=== PATIENT | male | born 1940 | race Caucasian/White ===

== ENCOUNTER 2021-05-07 17:37 | Inpatient (IN) | payer MEDICARE, OTHER ==
[~2021-05-07] VITALS: Ht 188 cm; Wt 106.8 kg
[~2021-05-07 17:37] MED LIST: etomidate 2mg/ml inj. ONE; rocuronium 10mg/ml inj IV ONE; sod chloride 0.9% 10ml flush syringe IV ONE
[2021-05-07] MEDS ORDERED: LISI10TA27 PO (17:51)
[2021-05-07] MEDS ORDERED: magnesium Cl slow-release 64mg tablet PO PRN (18:25)
[2021-05-07] MEDS ORDERED: magnesium 4gm in 100ml NS 100 ML IV PRN (18:25)
[2021-05-07] MEDS ORDERED: potassium Cl 20 mEq SR tablet PO PRN ×2 (18:25)
[2021-05-07] MEDS ORDERED: ondansetron/PF 4mg/2ml inj IV PRN (18:25)
[2021-05-07] MEDS: normal saline 1000ml 1,000 ML IV SCH (18:25)
[2021-05-07] MEDS ORDERED: potassium Cl 40MEQ/1/2NS 520ml 520 ML IV PRN ×2 (18:25)
[2021-05-07] MEDS ORDERED: magnesium 2GM in 50ml NS 50 ML IV PRN (18:25)
[2021-05-07] MEDS ORDERED: lisinopril 10 MG tablet PO SCH (18:30)
[2021-05-07] MEDS: enoxaparin 40mg/0.4ml syringe SUBCUT SCH (19:27)
[2021-05-07] MEDS: docusate sod 100mg capsule PO SCH (19:27)
[2021-05-07] MEDS: K and/or MAG REPLACEMENT MC SCH (20:00)
[2021-05-07] MEDS ORDERED: REMDESIVIR 200 MG in NS 100ml IVPB Loading dose IV ONE (21:00)
[2021-05-07] MEDS: DEXAMETHASONE 6 MG TABLET PO SCH (21:42)
--- NOTE | 2021-05-07 23:57 | NUR ---
RTWILL, AT BEDSIDE PLACING PT ON SALTAIR HIGH FLOW. HR 116, NSR, IRREGULAR.
[2021-05-08 02:57] LABS: BASOPHILS % (AUTO) 0.1 % (0-1); EOSINOPHILS % (AUTO) 0 % (0-6); HEMATOCRIT 47.2 % (42.0-52.0); HEMOGLOBIN 16.1 g/dl (14.0-17.9); LYMPHOCYTES # (AUTO) 0.5 X10'3 (1.1-4.8); LYMPHOCYTES % (AUTO) 8.4 % (21-51); MEAN CORPUSCULAR HGB CONC 34.1 g/dL (33.0-36.5); MEAN CORPUSCULAR VOLUME 96.8 FL (78-98); MEAN PLATELET VOLUME 7.1 FL (7.4-10.4); MONOCYTES # (AUTO) 0.4 X10'3 (0-0.9); MONOCYTES % (AUTO) 7.6 % (2-12); NEUTROPHILS # (AUTO) 4.6 X10'3 (1.8-7.7); NEUTROPHILS % (AUTO) 83.9 % (42-75); PLATELET COUNT 232 X10'3 (140-440); RED BLOOD COUNT 4.88 X10'6 (4.70-6.10); WHITE BLOOD COUNT 5.5 X10'3 (4.5-11.0)
[2021-05-08 03:03] LABS: ALBUMIN 2.5 G/DL (3.4-5.0); ANION GAP 11 (8-16); BLOOD UREA NITROGEN 17 MG/DL (7-18); BUN/CREATININE RATIO 14.7 (5.4-32.0); CALCIUM 8.4 MG/DL (8.5-10.1); CHLORIDE 101 MMOL/L (99-107); CREATININE 1.16 MG/DL (0.60-1.10); GLUCOSE 174 MG/DL (70-104); MAGNESIUM 2.4 MG/DL (1.5-2.4); POTASSIUM 4.2 MMOL/L (3.5-5.1); SODIUM 135 MMOL/L (135-145); TOTAL CARBON DIOXIDE 22.7 MMOL/L (24-32); eGFR 61 ML/MIN
--- NOTE | 2021-05-08 07:30 | NUR ---
recd report from yajaira dailey
[2021-05-08] MEDS: K and/or MAG REPLACEMENT MC SCH ×2 (08:00→20:00)
[2021-05-08] MEDS: docusate sod 100mg capsule PO SCH ×2 (08:35→20:00)
[2021-05-08] MEDS: DEXAMETHASONE 6 MG TABLET PO SCH (08:36)
[2021-05-08] MEDS: enoxaparin 40mg/0.4ml syringe SUBCUT SCH (08:37)
[2021-05-08 10:42] VITALS: BP 129/71
[2021-05-08 14:52] VITALS: BP 120/66
[2021-05-08 18:00] VITALS: BP 128/78
--- NOTE | 2021-05-08 18:34 | NUR ---
Problems reprioritized. Patient report given, questions answered & plan of care reviewed with FRANKY DELANEY.
--- NOTE | 2021-05-08 19:00 | NUR ---
Patient in room ORTHO 4011. I have received report from Mecca DELANEY and had the opportunity to ask questions and assume patient care.
[2021-05-08] MEDS: REMDESIVIR INJ 100 MG in normal saline 100ml IV soln 80 ML IV SCH (21:12)
[2021-05-08 22:00] VITALS: BP 126/68
--- NOTE | 2021-05-08 23:57 | NUR ---
PULSE OX WAS SAYING 86-89% ON 10 LITERS HIGH FLOW SO I INCREASED HIM TO 15 LITERS HIGH FLOW AND STILL AT 87-89% INFORMED PT'S NURSE AND PT WAS ALSO ABLE TO USE THE IS AND BRING IT UP TO ABOUT 2000.
--- NOTE | 2021-05-09 06:24 | NUR ---
Problems reprioritized. Patient report given, questions answered & plan of care reviewed with Mecca DELANEY.
--- NOTE | 2021-05-09 06:39 | NUR ---
Patient in room ORTHO 4011. I have received report from travis dailey and had the opportunity to ask questions and assume patient care.
[2021-05-09 06:55] VITALS: BP 132/70
[2021-05-09 07:47] LABS: BASOPHILS % (AUTO) 0.1 % (0-1); EOSINOPHILS % (AUTO) 0 % (0-6); HEMATOCRIT 50.8 % (42.0-52.0); HEMOGLOBIN 17.1 g/dl (14.0-17.9); LYMPHOCYTES # (AUTO) 0.9 X10'3 (1.1-4.8); LYMPHOCYTES % (AUTO) 9.8 % (21-51); MEAN CORPUSCULAR HEMOGLOBIN 33.7 PG (27.0-31.0); MEAN CORPUSCULAR HGB CONC 33.7 g/dL (33.0-36.5); MEAN PLATELET VOLUME 6.9 FL (7.4-10.4); MONOCYTES # (AUTO) 1.3 X10'3 (0-0.9); MONOCYTES % (AUTO) 14.3 % (2-12); NEUTROPHILS # (AUTO) 6.9 X10'3 (1.8-7.7); NEUTROPHILS % (AUTO) 75.8 % (42-75); PLATELET COUNT 252 X10'3 (140-440); RED BLOOD COUNT 5.08 X10'6 (4.70-6.10); RED CELL DISTRIBUTION WIDTH 13.2 % (11.5-14.5); WHITE BLOOD COUNT 9.1 X10'3 (4.5-11.0)
[2021-05-09 07:59] LABS: D-DIMER 0.63 MG/L FEU (0-0.50)
[2021-05-09 08:00] LABS: ALBUMIN 2.6 G/DL (3.4-5.0); ANION GAP 10 (8-16); BLOOD UREA NITROGEN 20 MG/DL (7-18); BUN/CREATININE RATIO 22.7 (5.4-32.0); C-REACTIVE PROTEIN 0.84 MG/DL (0.0-0.5); CHLORIDE 102 MMOL/L (99-107); CREATININE 0.88 MG/DL (0.60-1.10); GLUCOSE 110 MG/DL (70-104); MAGNESIUM 2.7 MG/DL (1.5-2.4); POTASSIUM 4.2 MMOL/L (3.5-5.1); SODIUM 134 MMOL/L (135-145); TOTAL CARBON DIOXIDE 22.1 MMOL/L (24-32); eGFR 84 ML/MIN
[2021-05-09] MEDS: K and/or MAG REPLACEMENT MC SCH ×2 (08:00→20:00)
[2021-05-09] MEDS: docusate sod 100mg capsule PO SCH ×2 (08:00→20:00)
[2021-05-09] MEDS: lisinopril 5mg tablet PO SCH (08:36)
[2021-05-09] MEDS: DEXAMETHASONE 6 MG TABLET PO SCH (08:36)
[2021-05-09] MEDS: enoxaparin 40mg/0.4ml syringe SUBCUT SCH (08:37)
[2021-05-09 10:00] VITALS: BP 126/70
[2021-05-09 14:00] VITALS: BP 116/70
[2021-05-09 18:00] VITALS: BP 131/72
[2021-05-09] MEDS: normal saline 1000ml 1,000 ML IV SCH (18:25)
--- NOTE | 2021-05-09 18:33 | NUR ---
Problems reprioritized. Patient report given, questions answered & plan of care reviewed with ANDRIA DELANEY.
--- NOTE | 2021-05-09 18:33 | NUR ---
Patient in room ORTHO 4011. I have received report from Mecca DELANEY and had the opportunity to ask questions and assume patient care.
[2021-05-09] MEDS: REMDESIVIR INJ 100 MG in normal saline 100ml IV soln 80 ML IV SCH (20:33)
[2021-05-09 22:00] VITALS: BP 131/79
[2021-05-10 02:00] VITALS: BP 117/64
[2021-05-10 06:00] VITALS: BP 129/73
--- NOTE | 2021-05-10 06:39 | NUR ---
Problems reprioritized. Patient report given, questions answered & plan of care reviewed with Roya DELANEY.
[2021-05-10] MEDS: K and/or MAG REPLACEMENT MC SCH ×2 (08:00→19:32)
[2021-05-10 08:20] LABS: BASOPHILS % (AUTO) 0.1 % (0-1); EOSINOPHILS % (AUTO) 0 % (0-6); HEMATOCRIT 47.8 % (42.0-52.0); HEMOGLOBIN 16.7 g/dl (14.0-17.9); LYMPHOCYTES # (AUTO) 0.6 X10'3 (1.1-4.8); LYMPHOCYTES % (AUTO) 7.3 % (21-51); MEAN CORPUSCULAR HEMOGLOBIN 33.7 PG (27.0-31.0); MEAN CORPUSCULAR HGB CONC 34.9 g/dL (33.0-36.5); MEAN CORPUSCULAR VOLUME 96.5 FL (78-98); MEAN PLATELET VOLUME 6.7 FL (7.4-10.4); MONOCYTES # (AUTO) 1.1 X10'3 (0-0.9); MONOCYTES % (AUTO) 12.3 % (2-12); NEUTROPHILS # (AUTO) 7.2 X10'3 (1.8-7.7); NEUTROPHILS % (AUTO) 80.3 % (42-75); PLATELET COUNT 301 X10'3 (140-440); RED BLOOD COUNT 4.96 X10'6 (4.70-6.10); RED CELL DISTRIBUTION WIDTH 13.3 % (11.5-14.5); WHITE BLOOD COUNT 8.9 X10'3 (4.5-11.0)
[2021-05-10] MEDS: docusate sod 100mg capsule PO SCH ×2 (08:20→19:32)
[2021-05-10] MEDS: dexamethasone 4mg tablet PO SCH ×2 (08:20→08:23)
[2021-05-10] MEDS: lisinopril 5mg tablet PO SCH (08:20)
[2021-05-10] MEDS: enoxaparin 40mg/0.4ml syringe SUBCUT SCH (08:21)
[2021-05-10 08:30] LABS: D-DIMER 1.91 MG/L FEU (0-0.50)
[2021-05-10 08:39] LABS: ALBUMIN 2.6 G/DL (3.4-5.0); ANION GAP 10 (8-16); BLOOD UREA NITROGEN 23 MG/DL (7-18); BUN/CREATININE RATIO 24.7 (5.4-32.0); C-REACTIVE PROTEIN 0.54 MG/DL (0.0-0.5); CHLORIDE 102 MMOL/L (99-107); CREATININE 0.93 MG/DL (0.60-1.10); GLUCOSE 96 MG/DL (70-104); MAGNESIUM 2.6 MG/DL (1.5-2.4); POTASSIUM 4.7 MMOL/L (3.5-5.1); SODIUM 137 MMOL/L (135-145); TOTAL CARBON DIOXIDE 25.4 MMOL/L (24-32); eGFR 78 ML/MIN
[2021-05-10 10:00] VITALS: BP 132/74
[2021-05-10 14:00] VITALS: BP 132/73
[2021-05-10 18:00] VITALS: BP 100/44
--- NOTE | 2021-05-10 18:47 | NUR ---
Patient in room ORTHO 4011. I have received report from Hannah DELANEY and had the opportunity to ask questions and assume patient care.
[2021-05-10] MEDS: REMDESIVIR INJ 100 MG in normal saline 100ml IV soln 80 ML IV SCH (19:32)
[2021-05-10 22:00] VITALS: BP 119/58
[2021-05-11 02:00] VITALS: BP 106/52
[2021-05-11 06:00] VITALS: BP 137/72
--- NOTE | 2021-05-11 06:31 | NUR ---
Problems reprioritized. Patient report given, questions answered & plan of care reviewed with Toyin DELANEY.
[2021-05-11] MEDS: lisinopril 5mg tablet PO SCH (07:39)
[2021-05-11] MEDS: dexamethasone 4mg tablet PO SCH (07:39)
[2021-05-11] MEDS: enoxaparin 40mg/0.4ml syringe SUBCUT SCH (07:40)
[2021-05-11] MEDS: docusate sod 100mg capsule PO SCH ×2 (07:40→20:00)
[2021-05-11 07:45] LABS: BASOPHILS % (AUTO) 0 % (0-1); EOSINOPHILS % (AUTO) 0 % (0-6); HEMATOCRIT 47.6 % (42.0-52.0); HEMOGLOBIN 16.6 g/dl (14.0-17.9); LYMPHOCYTES # (AUTO) 0.7 X10'3 (1.1-4.8); LYMPHOCYTES % (AUTO) 5.7 % (21-51); MEAN CORPUSCULAR HEMOGLOBIN 33.1 PG (27.0-31.0); MEAN CORPUSCULAR HGB CONC 34.9 g/dL (33.0-36.5); MEAN CORPUSCULAR VOLUME 95.1 FL (78-98); MEAN PLATELET VOLUME 6.7 FL (7.4-10.4); MONOCYTES # (AUTO) 0.7 X10'3 (0-0.9); MONOCYTES % (AUTO) 6.1 % (2-12); NEUTROPHILS # (AUTO) 10.5 X10'3 (1.8-7.7); NEUTROPHILS % (AUTO) 88.2 % (42-75); PLATELET COUNT 276 X10'3 (140-440); RED BLOOD COUNT 5.01 X10'6 (4.70-6.10); RED CELL DISTRIBUTION WIDTH 12.8 % (11.5-14.5); WHITE BLOOD COUNT 11.9 X10'3 (4.5-11.0)
[2021-05-11] MEDS: K and/or MAG REPLACEMENT MC SCH ×2 (08:00→18:54)
[2021-05-11 08:05] LABS: D-DIMER 7.25 MG/L FEU (0-0.50)
[2021-05-11 08:06] LABS: ALBUMIN 2.5 G/DL (3.4-5.0); ANION GAP 13 (8-16); BLOOD UREA NITROGEN 23 MG/DL (7-18); BUN/CREATININE RATIO 26.1 (5.4-32.0); C-REACTIVE PROTEIN 1.65 MG/DL (0.0-0.5); CALCIUM 8.7 MG/DL (8.5-10.1); CHLORIDE 100 MMOL/L (99-107); CREATININE 0.88 MG/DL (0.60-1.10); GLUCOSE 91 MG/DL (70-104); MAGNESIUM 2.3 MG/DL (1.5-2.4); SODIUM 134 MMOL/L (135-145); TOTAL CARBON DIOXIDE 20.9 MMOL/L (24-32); eGFR 84 ML/MIN
[2021-05-11 10:00] VITALS: BP 117/79
[2021-05-11] MEDS ORDERED: iohexol 350MG/ML 100ml bottle IV ONE (11:26)
[2021-05-11 12:18] LABS: LACTATE DEHYDROGENASE 457 U/L (85-227)
--- NOTE | 2021-05-11 12:48 | NUR ---
virtual radiology called regarding critical results. I paged Dr. Grant their phone number to call them
[2021-05-11] MEDS ORDERED: heparin 10,000 units/1 ML INJ IV ONE (13:00)
--- NOTE | 2021-05-11 13:00 | NUR ---
Page Sent PAGER ID: [phone] MESSAGE: CANDY [phone] RE: AMITA DURAND [id number] ARE YOU GOING TO COME UP AND TALK TO THE PT TO LET HIM KNOW THIS NEW DIAGNOSIS? I'D LIKE TO WAIT UNTIL AFTER THAT TO LET THE DAUGHTER KNOW. THANK YOU!
[2021-05-11 14:00] VITALS: BP 127/74
[2021-05-11] MEDS: heparin 25,000 UNIT/250ml bag 250 ML IV SCH (14:40)
[2021-05-11] MEDS: normal saline 1000ml 1,000 ML IV SCH (18:25)
[2021-05-11] MEDS: REMDESIVIR INJ 100 MG in normal saline 100ml IV soln 80 ML IV SCH (20:46)
[2021-05-11 21:00] VITALS: BP 165/82
[2021-05-11] MEDS: heparin 10,000 units/1 ML INJ IV PRN (22:07)
--- NOTE | 2021-05-11 22:27 | NUR ---
Heparin bolus was given 4,500 units. Went to change the rate due to a PTT of 44 following protocol to 2100 units and wasn't able to scan the bag. Charge nurse Gabriela Onofre was present and dual signed.
[2021-05-12 02:00] VITALS: BP 159/87
[2021-05-12] MEDS: heparin 25,000 UNIT/250ml bag 250 ML IV SCH ×3 (04:02→16:47)
[2021-05-12 06:00] VITALS: BP 163/79
--- NOTE | 2021-05-12 06:30 | NUR ---
Patient in room ORTHO 4011B. I have received report from ELAINA BABIN and had the opportunity to ask questions and assume patient care.
[2021-05-12] MEDS: docusate sod 100mg capsule PO SCH ×2 (08:00→20:00)
[2021-05-12] MEDS: K and/or MAG REPLACEMENT MC SCH ×2 (08:00→19:55)
[2021-05-12] MEDS: dexamethasone 4mg tablet PO SCH (08:04)
[2021-05-12] MEDS: lisinopril 5mg tablet PO SCH (08:04)
[2021-05-12 08:46] LABS: BASOPHILS % (AUTO) 0 % (0-1); EOSINOPHILS % (AUTO) 0.1 % (0-6); HEMATOCRIT 49.8 % (42.0-52.0); HEMOGLOBIN 17.6 g/dl (14.0-17.9); LYMPHOCYTES # (AUTO) 0.5 X10'3 (1.1-4.8); LYMPHOCYTES % (AUTO) 3.2 % (21-51); MEAN CORPUSCULAR HEMOGLOBIN 33.9 PG (27.0-31.0); MEAN CORPUSCULAR HGB CONC 35.3 g/dL (33.0-36.5); MEAN CORPUSCULAR VOLUME 95.8 FL (78-98); MONOCYTES # (AUTO) 0.5 X10'3 (0-0.9); MONOCYTES % (AUTO) 3.7 % (2-12); NEUTROPHILS # (AUTO) 13.4 X10'3 (1.8-7.7); PLATELET COUNT 293 X10'3 (140-440); RED CELL DISTRIBUTION WIDTH 13.1 % (11.5-14.5); WHITE BLOOD COUNT 14.4 X10'3 (4.5-11.0)
[2021-05-12 08:55] LABS: ALBUMIN 2.4 G/DL (3.4-5.0); ANION GAP 14 (8-16); BLOOD UREA NITROGEN 21 MG/DL (7-18); BUN/CREATININE RATIO 24.7 (5.4-32.0); C-REACTIVE PROTEIN 6.59 MG/DL (0.0-0.5); CALCIUM 8.6 MG/DL (8.5-10.1); CHLORIDE 97 MMOL/L (99-107); CREATININE 0.85 MG/DL (0.60-1.10); GLUCOSE 99 MG/DL (70-104); MAGNESIUM 2.5 MG/DL (1.5-2.4); SODIUM 129 MMOL/L (135-145); TOTAL CARBON DIOXIDE 18.1 MMOL/L (24-32); eGFR 87 ML/MIN
[2021-05-12 10:00] VITALS: BP 167/71
[2021-05-12 10:02] LABS: D-DIMER 5.63 MG/L FEU (0-0.50)
[2021-05-12] MEDS: heparin 10,000 units/1 ML INJ IV PRN (10:02)
--- NOTE | 2021-05-12 12:24 | NUR ---
Initial: Pt admit DX COVID-19, PNA, HTN, and acute respiratory failure per EMR. Pt initially PO ~100% avg heart healthy diet first 3 days w/ sudden decline to 0%/refusing yesterday. Noted pt w/ increased SOB and DX acute pulmonary embolism per MD note. Overall 75% avg meals partially meeting needs w/ PO pending for today's meals. Given pt large stature and current DX would benefit from Ensure High Protein TIDWM for additional protein/kcals; MD notified. Serum Na 129 this AM on heart healthy diet; RD d/w RN regarding liberalization to regular diet if MD agreeable given age/serum Na. LBM 05/10 w/ routine colace available and pt last accepted 05/10 per EMR. Will continue to monitor for PO trends and additional protein/kcal needs. Rec: 1. liberalize to regular diet from current heart healthy given low serum Na and age 2. Ensure High Protein TIDWM; pending MD verification in EMR. IF PO remains poor consider Ensure Enlive 3. routine bowel care 4. weekly wts Addendum: 05/12/21 at [address]ín [address] Amended: Links added.
[2021-05-12] MEDS ORDERED: lactose-reduced food (Ensure High Protein) 237ml bottle PO SCH (13:00)
[2021-05-12 13:50] LABS: ABG BASE EXCESS -1.7 mmol/L (-2.0-2.0); ABG HCO3 18.1 mmol/L (22.0-26.0); ABG OXYGEN SATURATION 87.8 % (94-97); ABG PCO2 (T) 24.4 mmHg (35.0-48.0); ABG PO2 (T) 59.6 mmHg (75.0-100.0); ALLEN'S TEST POSITIVE; FCOHb 0.3 % (0.0-3.9); FLOW 60 L/min; FMetHb 0.3 % (0.0-1.5); FO2Hb 87.3 % (94-97); PATIENT TEMPERATURE 39.4; TOTAL HEMOGLOBIN 17.4 G/dl (14.0-18.0)
[2021-05-12 14:00] VITALS: BP 131/72
[2021-05-12] MEDS: methylPREDNISolone sod succ 125mg/2ml vial IV SCH (16:47)
--- NOTE | 2021-05-12 18:39 | NUR ---
Problems reprioritized. Patient report given, questions answered & plan of care reviewed with ELAINA BABIN.
[2021-05-12] MEDS: normal saline 1000ml 1,000 ML IV SCH (22:04)
[2021-05-13 02:00] VITALS: BP 125/67
[2021-05-13] MEDS: methylPREDNISolone sod succ 125mg/2ml vial IV SCH ×3 (03:17→15:48)
--- NOTE | 2021-05-13 06:10 | NUR ---
Pt report given to Kaila DELANEY
--- NOTE | 2021-05-13 06:39 | NUR ---
Patient in room ORTHO 4011. I have received report from Rosalba DELANEY and had the opportunity to ask questions and assume patient care.
[2021-05-13 06:41] VITALS: BP 125/73
[2021-05-13] MEDS: docusate sod 100mg capsule PO SCH ×2 (07:50→19:40)
[2021-05-13] MEDS: lisinopril 5mg tablet PO SCH (07:50)
[2021-05-13] MEDS: K and/or MAG REPLACEMENT MC SCH ×2 (08:00→19:25)
[2021-05-13 09:13] LABS: C-REACTIVE PROTEIN 7.23 MG/DL (0.0-0.5); MAGNESIUM 2.6 MG/DL (1.5-2.4)
--- NOTE | 2021-05-13 09:17 | NUR ---
Upon assessment this morning patients IV line had infiltrated where his heparin was infusing. 0600 ptt was 31. Because I have no idea how long the heparin was not infusing properly it was discussed with the gis coordinator to re draw the ptt at 1200 to see what he is rather than increasing the rate per protocol.
[2021-05-13] MEDS: normal saline 1000ml 1,000 ML IV SCH (11:26)
[2021-05-13 13:09] VITALS: BP 120/70
--- NOTE | 2021-05-13 13:32 | NUR ---
Heparin GTT therapeutic at this time
--- NOTE | 2021-05-13 14:41 | NUR ---
Nutrition consult: RN inquiring about Ensure ONS for pt d/t poor PO intake w/ BiPAP. Per documentation, pt eating 100% of meals today. Communicated w/ RN that RD previously recommended Ensure High Protein TID though still unverified in EMR. Will continue to monitor. Addendum: 05/13/21 at [address] Amended: Links added.
[2021-05-13 16:39] VITALS: BP 125/80
[2021-05-13] MEDS: lactose-reduced food (Ensure Enlive) - 237ml bottle PO SCH (18:00)
[2021-05-13 18:30] VITALS: BP 154/84
--- NOTE | 2021-05-13 18:38 | NUR ---
Problems reprioritized. Patient report given, questions answered & plan of care reviewed with Davie DELANEY.
--- NOTE | 2021-05-13 18:50 | NUR ---
Problems reprioritized. Patient report given, questions answered & plan of care reviewed with Rosalba DELANEY.
--- NOTE | 2021-05-13 18:53 | NUR ---
Patient in room ORTHO 4011. I have received report from Pinky DELANEY and had the opportunity to ask questions and assume patient care.
[2021-05-13 22:10] VITALS: BP 130/65
[2021-05-14] MEDS: heparin 25,000 UNIT/250ml bag 250 ML IV SCH ×3 (00:30→19:00)
[2021-05-14] MEDS: methylPREDNISolone sod succ 125mg/2ml vial IV SCH ×3 (00:31→16:02)
[2021-05-14 02:00] VITALS: BP 106/55
[2021-05-14] MEDS: normal saline 1000ml 1,000 ML IV SCH ×2 (02:15→13:43)
[2021-05-14 04:08] LABS: C-REACTIVE PROTEIN 3.4 MG/DL (0.0-0.5); D-DIMER 2.28 MG/L FEU (0-0.50); MAGNESIUM 2.7 MG/DL (1.5-2.4)
[2021-05-14] MEDS: heparin 10,000 units/1 ML INJ IV PRN (05:06)
--- NOTE | 2021-05-14 06:22 | NUR ---
Patient in room ORTHO 4011. I have received report from Davie DELANEY and had the opportunity to ask questions and assume patient care.
[2021-05-14 06:35] VITALS: BP 101/48
[2021-05-14] MEDS: docusate sod 100mg capsule PO SCH ×2 (08:00→20:00)
[2021-05-14] MEDS: K and/or MAG REPLACEMENT MC SCH ×2 (08:00→20:00)
[2021-05-14] MEDS: lactose-reduced food (Ensure Enlive) - 237ml bottle PO SCH ×3 (08:00→18:41)
[2021-05-14] MEDS: lisinopril 5mg tablet PO SCH (08:16)
--- NOTE | 2021-05-14 12:07 | NUR ---
PAGER ID: [phone] MESSAGE: [id number] Raza, PTT is >139. Heparin drip stopped for 120 minutes per protocol. deepa [phone]
--- NOTE | 2021-05-14 12:09 | NUR ---
PTT per lab >139. Heparin stopped x120 minutes per protocol and re-draw ordered for 1400.
[2021-05-14 12:28] VITALS: BP 126/77
[2021-05-14 17:00] VITALS: BP 127/63
[2021-05-14 18:00] VITALS: BP 148/76
--- NOTE | 2021-05-14 18:27 | NUR ---
Problems reprioritized. Patient report given, questions answered & plan of care reviewed with Deangelo DELANEY.
--- NOTE | 2021-05-14 21:02 | NUR ---
PTT therapeutic no change necessary
[2021-05-14 22:00] VITALS: BP 142/75
[2021-05-15] MEDS: methylPREDNISolone sod succ 125mg/2ml vial IV SCH ×3 (00:55→16:29)
[2021-05-15] MEDS: normal saline 1000ml 1,000 ML IV SCH ×2 (03:03→04:20)
--- NOTE | 2021-05-15 03:18 | NUR ---
gave update to daughter Dixie about cpap and current PTT status.
[2021-05-15 03:22] VITALS: BP 143/70
[2021-05-15] MEDS: heparin 25,000 UNIT/250ml bag 250 ML IV SCH ×2 (04:17→19:05)
--- NOTE | 2021-05-15 05:59 | NUR ---
reported to days. noted pt on cpap at pressure 10 and 75% FIo2. Tolerating well. next PTT at 0730 with AM labs
[2021-05-15 06:23] VITALS: BP 151/74
--- NOTE | 2021-05-15 06:33 | NUR ---
Patient in room ORTHO 4011. I have received report from Deangelo DELANEY and had the opportunity to ask questions and assume patient care.
[2021-05-15] MEDS: lisinopril 5mg tablet PO SCH (07:54)
[2021-05-15] MEDS: docusate sod 100mg capsule PO SCH ×2 (08:00→19:59)
[2021-05-15] MEDS: K and/or MAG REPLACEMENT MC SCH ×2 (08:00→20:00)
--- NOTE | 2021-05-15 08:09 | NUR ---
PAGER ID: [phone] MESSAGE: [id number], Raza patient has expiratory wheezes this morning. Can I get an albuterol inhaler please? thank you deepa [phone]
[2021-05-15] MEDS ORDERED: ALBUTEROL INHALER 1 PUFF/90 MCG INHALER IH PRN (08:10)
[2021-05-15] MEDS: lactose-reduced food (Ensure Enlive) - 237ml bottle PO SCH ×3 (08:41→18:30)
[2021-05-15 10:15] LABS: BASOPHILS % (AUTO) 0.2 % (0-1); EOSINOPHILS % (AUTO) 0.1 % (0-6); HEMATOCRIT 47.4 % (42.0-52.0); HEMOGLOBIN 16.5 g/dl (14.0-17.9); LYMPHOCYTES # (AUTO) 0.2 X10'3 (1.1-4.8); LYMPHOCYTES % (AUTO) 1.3 % (21-51); MEAN CORPUSCULAR HEMOGLOBIN 33.7 PG (27.0-31.0); MEAN CORPUSCULAR HGB CONC 34.9 g/dL (33.0-36.5); MEAN CORPUSCULAR VOLUME 96.5 FL (78-98); MEAN PLATELET VOLUME 6.8 FL (7.4-10.4); MONOCYTES # (AUTO) 0.5 X10'3 (0-0.9); MONOCYTES % (AUTO) 3.4 % (2-12); NEUTROPHILS # (AUTO) 15.2 X10'3 (1.8-7.7); PLATELET COUNT 331 X10'3 (140-440); RED BLOOD COUNT 4.92 X10'6 (4.70-6.10); RED CELL DISTRIBUTION WIDTH 13.2 % (11.5-14.5)
[2021-05-15 10:27] LABS: ALANINE AMINOTRANSFERASE 38 U/L (12-78); ALBUMIN 1.9 G/DL (3.4-5.0); ALBUMIN/GLOBULIN RATIO 0.5 (1.1-1.5); ALKALINE PHOSPHATASE 129 IU/L (46-116); ANION GAP 12 (8-16); ASPARTATE AMINO TRANSFERASE 32 U/L (10-37); BILIRUBIN,TOTAL 0.8 MG/DL (0.1-1.0); BLOOD UREA NITROGEN 23 MG/DL (7-18); BUN/CREATININE RATIO 27.7 (5.4-32.0); C-REACTIVE PROTEIN 2.32 MG/DL (0.0-0.5); CALCIUM 7.9 MG/DL (8.5-10.1); CHLORIDE 101 MMOL/L (99-107); CREATININE 0.83 MG/DL (0.60-1.10); GLUCOSE 149 MG/DL (70-104); POTASSIUM 4.7 MMOL/L (3.5-5.1); SODIUM 134 MMOL/L (135-145); TOTAL CARBON DIOXIDE 20.7 MMOL/L (24-32); TOTAL PROTEIN 5.9 G/DL (6.4-8.2); eGFR 89 ML/MIN
[2021-05-15 10:40] VITALS: BP 138/74
[2021-05-15 10:53] LABS: D-DIMER 2.54 MG/L FEU (0-0.50)
--- NOTE | 2021-05-15 13:25 | NUR ---
F/u 05/15: Pt PO mostly ~100% regular diet meals w/ exception of 05/11-05/12 otherwise meeting needs. Noted Ensure Enlive TIDWM ordered in EMR after RD recommended ensure high protein TID; pt PO 100% ONS as well meeting needs. LBM 05/14. Serum Na 129 advanced to regular diet from prior heart healthy and receiving NS. No nutrition intervention at this time. Will continue to monitor. Rec: 1. continue regular diet 2. Ensure Enlive TIDWM per MD; consider Ensure High Protein TIDWM given adequate PO hx 3. routine bowel care 4. weekly wts Addendum: 05/15/21 at [address] Amended: Links added.
[2021-05-15] MEDS: acetaminophen 325mg tablet PO PRN (16:44)
--- NOTE | 2021-05-15 17:02 | NUR ---
PAGER ID: [phone] MESSAGE: [id number] patient is on bipap 100% fi02 oxygen saturations are 85-90% he is tachycardic and has a fever. Can i please get a blood gas he is having a hard time tolerating the bipap. Pinky [phone]
--- NOTE | 2021-05-15 17:04 | NUR ---
PAGER ID: [phone] MESSAGE: [id number] Raza, also patient is on a heparin drip for pulmonary embolism and just had a nosebleed. Current PTT is pending. Do you want me to keep heparin running or hold it? deepa [phone]
--- NOTE | 2021-05-15 17:25 | NUR ---
Spoke with hospitalist regarding patients condition. He was not tolerating cpap so he was switched back to bipap settings. Patient still is having a hard time with the bipap, tidal volumes are high as are respiratory rates, patient has a temperature of 100.9 axillary, tylenol given. Patient also developed a small nose bleed and is on heparin drip for pulmonary embolism was told to "follow the protocol" and that the hospitalist had spoken to the logistics and planning manager days ago about this patient and she does not know what to do. ABG ordered.
[2021-05-15 17:40] LABS: ABG BASE EXCESS -1.4 mmol/L (-2.0-2.0); ABG HCO3 20.2 mmol/L (22.0-26.0); ABG OXYGEN SATURATION 90.7 % (94-97); ABG PCO2 (T) 29.5 mmHg (35.0-48.0); ABG PO2 (T) 63.7 mmHg (75.0-100.0); ALLEN'S TEST POSITIVE; FCOHb 0.3 % (0.0-3.9); FMetHb 0.4 % (0.0-1.5); FO2Hb 90.1 % (94-97); PATIENT TEMPERATURE 38.8; RESPIRATORY RATE 16 b/min; TOTAL HEMOGLOBIN 16.6 G/dl (14.0-18.0)
--- NOTE | 2021-05-15 18:30 | NUR ---
Patient in room ORTHO 4011B. I have received report from ELAINA Vance and had the opportunity to ask questions and assume patient care.
--- NOTE | 2021-05-15 18:49 | NUR ---
Problems reprioritized. Patient report given, questions answered & plan of care reviewed with Esmer DELANEY.
[2021-05-15 19:55] VITALS: BP 125/71
[2021-05-15 22:00] VITALS: BP 152/79
--- NOTE | 2021-05-15 23:07 | NUR ---
Patient's cardiac PTT results therapeutic at 67 seconds. No rate changes needed
[2021-05-16] VITALS (7 sets, daily range): BP systolic 129–171; BP diastolic 37–92
[2021-05-16] MEDS: methylPREDNISolone sod succ 125mg/2ml vial IV SCH ×3 (00:37→16:13)
--- NOTE | 2021-05-16 02:17 | NUR ---
pt desat to 84% on bipap. RT changed to cpap still 100% fiO2. pt did well with cpap - then desat with any movement. pt not anxious or breathing hard. seems to be comfortable at this time. cont pulse ox in place and audible. RT aware. pt staying at 89%
[2021-05-16 05:25] LABS: C-REACTIVE PROTEIN 2.31 MG/DL (0.0-0.5)
[2021-05-16 05:28] LABS: D-DIMER 4.11 MG/L FEU (0-0.50)
[2021-05-16] MEDS: normal saline 1000ml 1,000 ML IV SCH ×3 (05:43→21:34)
[2021-05-16] MEDS: heparin 25,000 UNIT/250ml bag 250 ML IV SCH ×4 (07:08→21:36)
[2021-05-16 07:27] LABS: ALANINE AMINOTRANSFERASE 40 U/L (12-78); ALBUMIN 1.9 G/DL (3.4-5.0); ALBUMIN/GLOBULIN RATIO 0.5 (1.1-1.5); ALKALINE PHOSPHATASE 145 IU/L (46-116); ANION GAP 8 (8-16); ASPARTATE AMINO TRANSFERASE 34 U/L (10-37); BILIRUBIN,TOTAL 0.9 MG/DL (0.1-1.0); BLOOD UREA NITROGEN 23 MG/DL (7-18); BUN/CREATININE RATIO 27.7 (5.4-32.0); CALCIUM 8.3 MG/DL (8.5-10.1); CHLORIDE 100 MMOL/L (99-107); CREATININE 0.83 MG/DL (0.60-1.10); GLUCOSE 124 MG/DL (70-104); POTASSIUM 4.6 MMOL/L (3.5-5.1); SODIUM 129 MMOL/L (135-145); TOTAL CARBON DIOXIDE 20.8 MMOL/L (24-32); TOTAL PROTEIN 5.7 G/DL (6.4-8.2); eGFR 89 ML/MIN
[2021-05-16] MEDS: K and/or MAG REPLACEMENT MC SCH ×2 (08:00→20:00)
[2021-05-16] MEDS: lactose-reduced food (Ensure Enlive) - 237ml bottle PO SCH ×3 (08:40→18:00)
[2021-05-16] MEDS: docusate sod 100mg capsule PO SCH ×3 (08:42→20:00)
[2021-05-16] MEDS: lisinopril 5mg tablet PO SCH (08:49)
--- NOTE | 2021-05-16 10:12 | NUR ---
spoke to Dr Pineda re pt oxygenation status. He agrees with Dr Diaz that the pt needs to go to ICU. He recommends that DR Diaz transfers the pt as soon as possible. I spoke with DR Diaz and relayed the message, she states she will call nursing banana ripening room supervisor and make arrangement
[2021-05-16] MEDS ORDERED: budesonide 0.5mg/2ml UD nebule IH STA (12:09)
--- NOTE | 2021-05-16 12:44 | NUR ---
Dr Tobin came to assess patient and feels that he can stay on the floor. I expressed concern over the RR 27 and the fact that the O2 sat is rarely above 88. He is ordering a blood gas and budesonide nebs. PTT was due at 1030. I was told by veterinarian laboratory animal care this am that she would come back and draw the timed PTT and that I did not have to draw the lab. The lab was late and I was told to draw it myself. At 1130 I shut off the hep gtt and I tried multiple times to draw lab to no avail. Then the IV looked infilrated/bruised so I had to leave the infusion off until I could secure another IV. The infusion was restarted at 1230. Nursing load out supervisor is aware of this situation. I spoke to the lab again about my concern over the fact that this lab value is over 2 hours late, and they said that a veterinarian laboratory animal care would be here to draw the labs shortly.
[2021-05-16 12:52] LABS: ABG BASE EXCESS -1.4 mmol/L (-2.0-2.0); ABG HCO3 20.8 mmol/L (22.0-26.0); ABG OXYGEN SATURATION 92.4 % (94-97); ABG PCO2 (T) 29.3 mmHg (35.0-48.0); ABG PO2 (T) 61.9 mmHg (75.0-100.0); ALLEN'S TEST POSITIVE; FCOHb 0.3 % (0.0-3.9); FMetHb 0.2 % (0.0-1.5); FO2Hb 91.9 % (94-97); TOTAL HEMOGLOBIN 16.8 G/dl (14.0-18.0)
[2021-05-16 14:41] LABS: BASOPHILS # (AUTO) 0.1 X10'3 (0-0.2); BASOPHILS % (AUTO) 0.3 % (0-1); EOSINOPHILS % (AUTO) 0 % (0-6); HEMATOCRIT 48.2 % (42.0-52.0); HEMOGLOBIN 16.7 g/dl (14.0-17.9); LYMPHOCYTES # (AUTO) 0.3 X10'3 (1.1-4.8); LYMPHOCYTES % (AUTO) 1.6 % (21-51); MEAN CORPUSCULAR HEMOGLOBIN 33.5 PG (27.0-31.0); MEAN CORPUSCULAR HGB CONC 34.5 g/dL (33.0-36.5); MEAN PLATELET VOLUME 7.1 FL (7.4-10.4); MONOCYTES # (AUTO) 0.3 X10'3 (0-0.9); NEUTROPHILS # (AUTO) 15.6 X10'3 (1.8-7.7); NEUTROPHILS % (AUTO) 96.1 % (42-75); PLATELET COUNT 301 X10'3 (140-440); RED BLOOD COUNT 4.97 X10'6 (4.70-6.10); RED CELL DISTRIBUTION WIDTH 12.9 % (11.5-14.5); WHITE BLOOD COUNT 16.2 X10'3 (4.5-11.0)
--- NOTE | 2021-05-16 15:09 | NUR ---
PAGER ID: [phone] MESSAGE: Carolann [phone]- re Mr Kiran Raza- Dr Tobin has consulted, does not believe he needs to be transferred to ICU emergently. Pt temp 100.1, he ordered labs lactic, etc, but wanted you to know what was going on.
[2021-05-16] MEDS: acetaminophen 325mg tablet PO PRN (16:15)
--- NOTE | 2021-05-16 19:11 | NUR ---
Patient in room ORTHO 4011. I have received report from CLARA DELANEY and had the opportunity to ask questions and assume patient care. Addendum: 05/16/21 at 1911 by Kirstie Dunham RN Amended: Links added.
[2021-05-16 20:57] LABS: PARTIAL THROMBOPLASTIN TIME 57 SECONDS (22-32)
[2021-05-17] MEDS: methylPREDNISolone sod succ 125mg/2ml vial IV SCH ×3 (00:35→18:30)
--- NOTE | 2021-05-17 01:11 | NUR ---
RESTING WITH BIPAP ON WITHOUT S&S OF DISTRESS AT THIS TIME.
[2021-05-17 02:20] VITALS: BP 157/100
--- NOTE | 2021-05-17 02:25 | NUR ---
labs drawn from left ac iv.
--- NOTE | 2021-05-17 03:35 | NUR ---
was told tubes not able to be run so redraw needed for hep ptt. drawn from left ac iv after flushing and heparin off during this time. then sent down with desk representative to be reran. Addendum: 05/17/21 at 0454 by Kirstie Dunham RN time of notification wrong notified 0420 and drawn 0425 for labs.
--- NOTE | 2021-05-17 05:32 | NUR ---
pt sat up to void in urinal became very sob and sats down to 86% after 15 minutes of laying down and rest sats back up to 90% on 100% fio2.
--- NOTE | 2021-05-17 05:36 | NUR ---
lab called stated they were unable to run the blood drawn it hemolyzed.
[2021-05-17 06:00] VITALS: BP 190/105
--- NOTE | 2021-05-17 06:39 | NUR ---
Problems reprioritized. Patient report given, questions answered & plan of care reviewed with CLARY DELANEY. Addendum: 05/17/21 at 0640 by Kirstie Dunham RN Amended: Links added.
[2021-05-17] MEDS: budesonide 0.5mg/2ml UD nebule IH SCH (07:43)
[2021-05-17] MEDS: lactose-reduced food (Ensure Enlive) - 237ml bottle PO SCH ×3 (08:00→18:45)
[2021-05-17] MEDS: K and/or MAG REPLACEMENT MC SCH ×2 (08:00→20:00)
[2021-05-17] MEDS: docusate sod 100mg capsule PO SCH ×2 (08:00→19:30)
[2021-05-17 08:38] LABS: BASOPHILS % (AUTO) 0.1 % (0-1); EOSINOPHILS % (AUTO) 0 % (0-6); HEMOGLOBIN 16.1 g/dl (14.0-17.9); LYMPHOCYTES # (AUTO) 0.2 X10'3 (1.1-4.8); LYMPHOCYTES % (AUTO) 1.2 % (21-51); MEAN CORPUSCULAR HEMOGLOBIN 33.2 PG (27.0-31.0); MEAN CORPUSCULAR HGB CONC 35.1 g/dL (33.0-36.5); MEAN CORPUSCULAR VOLUME 94.7 FL (78-98); MEAN PLATELET VOLUME 6.9 FL (7.4-10.4); MONOCYTES # (AUTO) 0.7 X10'3 (0-0.9); MONOCYTES % (AUTO) 3.7 % (2-12); NEUTROPHILS # (AUTO) 16.6 X10'3 (1.8-7.7); PLATELET COUNT 277 X10'3 (140-440); RED BLOOD COUNT 4.86 X10'6 (4.70-6.10); RED CELL DISTRIBUTION WIDTH 12.8 % (11.5-14.5); WHITE BLOOD COUNT 17.5 X10'3 (4.5-11.0)
[2021-05-17 08:51] LABS: D-DIMER 3.66 MG/L FEU (0-0.50)
[2021-05-17 09:30] LABS: ALBUMIN 1.9 G/DL (3.4-5.0); ANION GAP 8 (8-16); BLOOD UREA NITROGEN 23 MG/DL (7-18); BUN/CREATININE RATIO 32.4 (5.4-32.0); C-REACTIVE PROTEIN 2.37 MG/DL (0.0-0.5); CALCIUM 8.4 MG/DL (8.5-10.1); CHLORIDE 100 MMOL/L (99-107); CREATININE 0.71 MG/DL (0.60-1.10); GLUCOSE 113 MG/DL (70-104); MAGNESIUM 2.5 MG/DL (1.5-2.4); POTASSIUM 4.5 MMOL/L (3.5-5.1); SODIUM 131 MMOL/L (135-145); TOTAL CARBON DIOXIDE 23.1 MMOL/L (24-32); eGFR > 90 ML/MIN
[2021-05-17] MEDS: heparin 25,000 UNIT/250ml bag 250 ML IV SCH ×3 (09:56→15:24)
[2021-05-17 10:00] VITALS: BP 143/94
[2021-05-17] MEDS: lisinopril 5mg tablet PO SCH (12:39)
[2021-05-17 14:00] VITALS: BP 142/96
[2021-05-17 14:57] LABS: PARTIAL THROMBOPLASTIN TIME 50 SECONDS (22-32)
--- NOTE | 2021-05-17 15:02 | NUR ---
call to MD schmitt pt increasing tachy rate: PAGER ID: [phone] MESSAGE: Carolann [phone] oskar Person- MILAD- HR is steadily climbing today, now in the 130's per tele. takes once daily lisinopril but no other BP meds
[2021-05-17] MEDS: acetaminophen 325mg tablet PO PRN (16:32)
[2021-05-17 16:33] LABS: ABG BASE EXCESS -2.1 mmol/L (-2.0-2.0); ABG HCO3 19.9 mmol/L (22.0-26.0); ABG PCO2 (T) 29.7 mmHg (35.0-48.0); ABG PO2 (T) 55.8 mmHg (75.0-100.0); ALLEN'S TEST POSITIVE; FCOHb 0.3 % (0.0-3.9); FMetHb 0.3 % (0.0-1.5); FO2Hb 87.5 % (94-97); PATIENT TEMPERATURE 37.9; RESPIRATORY RATE 16 b/min; TOTAL HEMOGLOBIN 17.9 G/dl (14.0-18.0)
--- NOTE | 2021-05-17 16:48 | NUR ---
Called by nurse to evaluate patient. Nurse states she is concerned with his working of breathing and that he is tiring out. Patient on BiPAP on 100% FiO2. Some abdominal accessory muscle usage, but does not appear to be struggling. RR in 30's. Noted heart rate 130's. CXR done showing increased opacity. ABG remains unchanged from yesterday. Recommend an anxiolytic to allow patient to rest and to prone patient as much as possible to assist with lung recruitment and oxygenation.
--- NOTE | 2021-05-17 16:49 | NUR ---
Spoke to Joe who, again, agrees pt should be transferred to higher level of care (this was the opinion yesterday as well) spoke to Lennie OLIVER. SHe states that blood gas looks worse P02 is 52.4 and dropping. Pt RR is sustained 32-37. Spo2 84-89 on 100% fi02. HR is tachy into the 130's. Temp 100.4 ax. BC are positive. Spoke to Rosa Maria in ICU re a possible transfer. She evaluated the pt and states he does "not really look that bad". Therefore they will hold off on transfer for now. Recommends proning and morphine or ativan. I spoke to Dr Diaz re recommendations and she states she does not feel comfortable giving either of those drugs for fear of respiratory depression. Will continue to monitor
[2021-05-17 18:00] VITALS: BP 163/111
--- NOTE | 2021-05-17 18:46 | NUR ---
I received a call from tele approx 1730 stating the pt HR was in the 160's. Pt light was on, at the bedside he is sitting straight up in bed, face purple, stating he can't breathe. O2 sat 60's and plummeting to the 50's. HR in the 160's. RR 38. Sherry was called, BREEDER HEN SERVICE TECHNICIAN there at bedside with RT, pt recovered somewhat (to the 80's) and the rapid team left quickly thereafter. Not even 10 minutes later the pt is satting in the 60's again, down to the 40's, and the HR is sustained in 160's, RT at bedside again, she states that the BREEDER HEN SERVICE TECHNICIAN needs to see and hear him saying he cannot breathe. SInce she had left I called another sherry. Pt remained below 60's sa02 the entire time. RT and I begin the process of proning the pt. Sherry RN comes back and helps us to prone pt. With pt prone his sats came up to 90 on bipap 100% fi02 and HR down to 102. BREEDER HEN SERVICE TECHNICIAN Rosa Maria states that she will keep an eye on the pt.
--- NOTE | 2021-05-17 19:15 | NUR ---
Patient in room ORTHO 4011. I have received report from Carolann DELANEY and had the opportunity to ask questions and assume patient care. Additionally, per pt. RN report, SR. OPERATIONS MANAGER was called on pt. due to change of condition shortly before change of shift report. Addendum: 05/17/21 at 1922 by Kaya Teran RN Amended: Links added.
--- NOTE | 2021-05-17 19:30 | NUR ---
Per pt's off going shift RN report; pt experienced nose bleeding event during rapid response period. No active bleeding noted at this time. Heparin infusing as ordered. Addendum: 05/17/21 at 2010 by Kaya Teran RN Amended: Links added.
--- NOTE | 2021-05-17 19:30 | NUR ---
Pt. awake A & O to place, time, and events. Pt. with increased SOB with minimal activities resulting in o2 sats decreasing between 77 %-88%; pt on cont. BIPAP. After activities pt. saturating at 95%. Bed in low position and call light within reach. Addendum: 05/17/21 at 2006 by Kaya Teran RN Amended: Links added.
[2021-05-17 21:11] LABS: PARTIAL THROMBOPLASTIN TIME 56 SECONDS (22-32)
--- NOTE | 2021-05-17 21:40 | NUR ---
Pt. resting comfortably saturating at 97% via BIPAP, RR 23 at this time. Addendum: 05/17/21 at 2142 by Kaya Teran RN Amended: Links added.
[2021-05-17 22:00] VITALS: BP 150/77
[2021-05-18] VITALS (7 sets, daily range): BP systolic 87–132; BP diastolic 43–78
[2021-05-18] MEDS: normal saline 1000ml 1,000 ML IV SCH ×2 (00:06→11:03)
[2021-05-18] MEDS: methylPREDNISolone sod succ 125mg/2ml vial IV SCH ×3 (00:06→21:09)
[2021-05-18] MEDS: heparin 25,000 UNIT/250ml bag 250 ML IV SCH (02:14)
--- NOTE | 2021-05-18 02:15 | NUR ---
Pt. sleeping soundly BIPAP in place. Paged RT regarding pt's o2 saturation between 87%-88 % d/t charge nurse concerns. RT came and evaluated pt and no additional treated given at this time. Addendum: 05/18/21 at 0238 by Kaya Teran RN Amended: Links added.
--- NOTE | 2021-05-18 03:00 | NUR ---
Attempted PTT draw x 2 without success; pt. has poor veins. Consulted with poultry sexer who started; pt. in therapeutic ranges of 56 drawn at 202905/17/2021 and can wait until morning. Will notify Dr. Grant. Addendum: 05/18/21 at 0323 by Kaya Teran RN Amended: Links added.
[2021-05-18] MEDS: VANCOmycin 1250MG/NS 250ml Bag 250 ML IV SCH ×2 (03:41→21:08)
--- NOTE | 2021-05-18 04:06 | NUR ---
Attempted lab draw for PTT for heparin gtt for primary nurse. Only able to get 1ml of blood but spoke to lab and unable to run specimen due to not enough blood.
--- NOTE | 2021-05-18 05:00 | NUR ---
Pt. sating 88% on BIPAP with no other additional changed of condition this shift. Addendum: 05/18/21 at 0510 by Kaya Teran RN Amended: Links added.
--- NOTE | 2021-05-18 07:00 | NUR ---
Problems reprioritized. Patient report given, questions answered & plan of care reviewed with Tania DELANEY. Addendum: 05/18/21 at 0702 by Kaya Teran RN Amended: Links added.
[2021-05-18] MEDS: lisinopril 5mg tablet PO SCH (07:37)
[2021-05-18] MEDS: lactose-reduced food (Ensure Enlive) - 237ml bottle PO SCH ×3 (08:00→09:25)
[2021-05-18] MEDS: budesonide 0.5mg/2ml UD nebule IH SCH ×3 (08:00→20:00)
[2021-05-18] MEDS: K and/or MAG REPLACEMENT MC SCH ×2 (08:00→20:00)
[2021-05-18] MEDS: docusate sod 100mg capsule PO SCH ×2 (08:00→20:00)
[2021-05-18 09:29] LABS: D-DIMER 3.05 MG/L FEU (0-0.50); PARTIAL THROMBOPLASTIN TIME 56 SECONDS (22-32)
[2021-05-18 09:32] LABS: C-REACTIVE PROTEIN 3.54 MG/DL (0.0-0.5)
[2021-05-18 09:43] LABS: BASOPHILS % (AUTO) 0.1 % (0-1); EOSINOPHILS % (AUTO) 0 % (0-6); LYMPHOCYTES # (AUTO) 0.3 X10'3 (1.1-4.8); LYMPHOCYTES % (AUTO) 1.8 % (21-51); MEAN CORPUSCULAR HEMOGLOBIN 33.8 PG (27.0-31.0); MEAN CORPUSCULAR HGB CONC 34.8 g/dL (33.0-36.5); MEAN CORPUSCULAR VOLUME 97.1 FL (78-98); MEAN PLATELET VOLUME 7.5 FL (7.4-10.4); MONOCYTES # (AUTO) 0.4 X10'3 (0-0.9); MONOCYTES % (AUTO) 2.6 % (2-12); NEUTROPHILS # (AUTO) 16.3 X10'3 (1.8-7.7); NEUTROPHILS % (AUTO) 95.5 % (42-75); PLATELET COUNT 248 X10'3 (140-440); RED BLOOD COUNT 4.74 X10'6 (4.70-6.10); RED CELL DISTRIBUTION WIDTH 12.9 % (11.5-14.5)
[2021-05-18 09:53] LABS: ALANINE AMINOTRANSFERASE 40 U/L (12-78); ALBUMIN 1.7 G/DL (3.4-5.0); ALBUMIN/GLOBULIN RATIO 0.5 (1.1-1.5); ALKALINE PHOSPHATASE 120 IU/L (46-116); ANION GAP 13 (8-16); ASPARTATE AMINO TRANSFERASE 27 U/L (10-37); BILIRUBIN,TOTAL 0.8 MG/DL (0.1-1.0); BLOOD UREA NITROGEN 23 MG/DL (7-18); BUN/CREATININE RATIO 33.3 (5.4-32.0); CALCIUM 7.8 MG/DL (8.5-10.1); CHLORIDE 101 MMOL/L (99-107); CREATININE 0.69 MG/DL (0.60-1.10); GLUCOSE 130 MG/DL (70-104); POTASSIUM 4.4 MMOL/L (3.5-5.1); SODIUM 136 MMOL/L (135-145); TOTAL CARBON DIOXIDE 22.4 MMOL/L (24-32); TOTAL PROTEIN 5.3 G/DL (6.4-8.2); eGFR > 90 ML/MIN
--- NOTE | 2021-05-18 11:03 | NUR ---
PAGER ID: [phone] MESSAGE: Patient in [id number] Kiran Person is in a-flutter and HR 160's . Eunice [phone] ortho (75 character message out of a maximum of 240)
[2021-05-18] MEDS ORDERED: diltiazem 5mg/ml 5ml inj. IV ONE (11:10)
--- NOTE | 2021-05-18 11:11 | NUR ---
ordered cardizem IV 5mg from Dr. Diaz for high HR/flutter
--- NOTE | 2021-05-18 11:58 | NUR ---
PAGER ID: [phone] MESSAGE: called Rapid on Kiran Person, can't get sat above 80%, pushing Cardizem, patient won't lay prone states he can't, thanks, Eunice
--- NOTE | 2021-05-18 13:51 | NUR ---
PAGER ID: [phone] MESSAGE: Can you call daughter Ramses about Kiran Marie' condition? Thank you, Her name is Ramses Keeapurva [phone]. I told her about
--- NOTE | 2021-05-18 17:00 | NUR ---
PAGER ID: [phone] MESSAGE: [phone]. Kiran Person HR is 160 his 02 sat is 81%. Color is not good. Tania [phone]
[2021-05-18 17:10] LABS: ABG HCO3 21.1 mmol/L (22.0-26.0); ABG OXYGEN SATURATION 79.7 % (94-97); ABG PCO2 (T) 32.9 mmHg (35.0-48.0); ABG PO2 (T) 42.8 mmHg (75.0-100.0); ALLEN'S TEST POSITIVE; FCOHb 0.3 % (0.0-3.9); FMetHb 0.2 % (0.0-1.5); FO2Hb 79.3 % (94-97); RESPIRATORY RATE 16 b/min; TIDAL VOLUME 1432 mL; TOTAL HEMOGLOBIN 20.3 G/dl (14.0-18.0)
[2021-05-18] MEDS ORDERED: potassium Cl 40MEQ/250ML bag 270 ML IV PRN ×2 (17:35)
[2021-05-18] MEDS ORDERED: ondansetron/PF 4mg/2ml inj IV PRN (17:35)
[2021-05-18] MEDS ORDERED: acetaminophen 325mg tablet PO PRN ×2 (17:35)
[2021-05-18] MEDS ORDERED: magnesium hydroxide 30ml (MOM) UD suspension PO PRN (17:35)
[2021-05-18] MEDS ORDERED: LIDOcaine 2% 10ml TOPICAL JELLY (Urojet) TP ONE (17:35)
[2021-05-18] MEDS ORDERED: potassium Cl 20 mEq SR tablet PO PRN ×2 (17:35)
[2021-05-18] MEDS ORDERED: LORazepam 2 mg/ml vial IV PRN (17:55)
[2021-05-18] MEDS ORDERED: hydrALAZINE 20mg/ml inj. IV PRN (17:55)
--- NOTE | 2021-05-18 18:10 | NUR ---
Patient in room CICU 2013. I have received report from ELAINA Lowry and had the opportunity to ask questions and assume patient care. Dr. Melgar at bedside to place central line. certified real estate appraiser at bedside to assist.
--- NOTE | 2021-05-18 18:27 | NUR ---
1800- Pt arrived via bed, transferred to our bed. pt alert and oriented on cpap, placed on left side, sats 91%, Dr Young at bedside. orders for lovenox, 1/2 ns at 50, hydralazine PRN, labs, ativan prn, precedex gtt. Nrsg unable to place a primary IV , to place a CVL in IJ. Reported of to Farzaneh.
[2021-05-18] MEDS: sodium chloride 0.45% 1,000 ML IV SCH (19:00)
[2021-05-18] MEDS: dexmedetomidine/D5W 100mL 100 ML IV SCH (19:00)
[2021-05-18] MEDS: lactobacillus rhamnosus 10,000 MMU CELLS/CAPSULE PO SCH (21:11)
[2021-05-18] MEDS: enoxaparin 80mg/0.8ml syringe SUBCUT SCH (21:11)
[2021-05-19] VITALS (23 sets, daily range): BP systolic 81–127; BP diastolic 46–80
[2021-05-19] MEDS: normal saline 1000ml 1,000 ML IV SCH (00:23)
--- NOTE | 2021-05-19 01:00 | NUR ---
Jama cath placed without incident. While repositioning patient to change linen, patients oxygen desaturation to the high 70's. Patient placed on his right side. Oxygen saturation slow to recover to 89-90%.
[2021-05-19] MEDS: methylPREDNISolone sod succ 125mg/2ml vial IV SCH ×3 (01:34→16:48)
[2021-05-19] MEDS: dexmedetomidine/D5W 100mL 100 ML IV SCH ×5 (02:15→21:32)
[2021-05-19] MEDS ORDERED: VANCOMYCIN LEVEL IV ONE (02:30)
--- NOTE | 2021-05-19 02:36 | NUR ---
Patient not tolerating repositioning. Increased oxygen saturation to 89-90% when on his left side. Pillows in place to off load pressure. Care activities clustered to allow for patient to rest. Precedex titrated for patient anxiety.
[2021-05-19 03:25] LABS: BASOPHILS % (AUTO) 0.1 % (0-1); EOSINOPHILS % (AUTO) 0 % (0-6); HEMATOCRIT 46.1 % (42.0-52.0); HEMOGLOBIN 16.1 g/dl (14.0-17.9); LYMPHOCYTES # (AUTO) 0.3 X10'3 (1.1-4.8); LYMPHOCYTES % (AUTO) 1.4 % (21-51); MEAN CORPUSCULAR HEMOGLOBIN 33.2 PG (27.0-31.0); MEAN CORPUSCULAR HGB CONC 34.8 g/dL (33.0-36.5); MEAN CORPUSCULAR VOLUME 95.4 FL (78-98); MEAN PLATELET VOLUME 7.4 FL (7.4-10.4); MONOCYTES # (AUTO) 0.7 X10'3 (0-0.9); MONOCYTES % (AUTO) 3.3 % (2-12); NEUTROPHILS # (AUTO) 19.2 X10'3 (1.8-7.7); NEUTROPHILS % (AUTO) 95.2 % (42-75); PLATELET COUNT 215 X10'3 (140-440); RED BLOOD COUNT 4.84 X10'6 (4.70-6.10); WHITE BLOOD COUNT 20.2 X10'3 (4.5-11.0)
[2021-05-19 03:40] LABS: ALANINE AMINOTRANSFERASE 47 U/L (12-78); ALBUMIN 1.6 G/DL (3.4-5.0); ALBUMIN/GLOBULIN RATIO 0.5 (1.1-1.5); ALKALINE PHOSPHATASE 101 IU/L (46-116); ANION GAP 11 (8-16); ASPARTATE AMINO TRANSFERASE 32 U/L (10-37); BLOOD UREA NITROGEN 38 MG/DL (7-18); BUN/CREATININE RATIO 41.8 (5.4-32.0); CHLORIDE 104 MMOL/L (99-107); CREATININE 0.91 MG/DL (0.60-1.10); GLUCOSE 152 MG/DL (70-104); POTASSIUM 4.5 MMOL/L (3.5-5.1); SODIUM 139 MMOL/L (135-145); TOTAL CARBON DIOXIDE 24.3 MMOL/L (24-32); TOTAL PROTEIN 5.1 G/DL (6.4-8.2); eGFR 80 ML/MIN
[2021-05-19 03:41] LABS: C-REACTIVE PROTEIN 2.56 MG/DL (0.0-0.5); MAGNESIUM 2.6 MG/DL (1.5-2.4); PHOSPHORUS 3.6 MG/DL (2.3-4.5); VANCOMYCIN,TROUGH 15.4 UG/ML (6.0-14.0)
[2021-05-19 03:42] LABS: D-DIMER 10.24 MG/L FEU (0-0.50); PARTIAL THROMBOPLASTIN TIME 30 SECONDS (22-32)
--- NOTE | 2021-05-19 04:15 | NUR ---
Phone call to Dr. Sanderson re: increase in D-Dimer to 10. Confirmed patient is on Lovenox BID. no new orders at this time.
[2021-05-19] MEDS: VANCOmycin 1250MG/NS 250ml Bag 250 ML IV SCH (04:33)
--- NOTE | 2021-05-19 06:00 | NUR ---
Patient with large diarrhea stool in bed. After bed change patient taking a long time to recover back to baseline oxygen saturation. Patient repositioned over to left side, pillows placed for patient to prone as much as he will tolerate. Slow increase in oxygen saturation back to 87-88%.
--- NOTE | 2021-05-19 06:15 | NUR ---
Problems reprioritized. Patient report given, questions answered & plan of care reviewed with ELAINA Lowry.
[2021-05-19] MEDS: K and/or MAG REPLACEMENT MC SCH ×2 (07:12→19:29)
[2021-05-19] MEDS: docusate sod 100mg capsule PO SCH ×2 (07:13→19:29)
[2021-05-19] MEDS ORDERED: NORepinephrine inj. 8 MG in dextrose 5%-water 242 ML IV SCH (07:15)
[2021-05-19] MEDS: NORepinephrine 8mg/ 250ml NS 250 ML IV SCH ×2 (07:35→20:48)
[2021-05-19] MEDS: lactose-reduced food (Ensure Enlive) - 237ml bottle PO SCH ×3 (08:00→18:00)
[2021-05-19] MEDS: lactobacillus rhamnosus 10,000 MMU CELLS/CAPSULE PO SCH ×2 (08:00→19:29)
[2021-05-19] MEDS: lisinopril 5mg tablet PO SCH (08:00)
[2021-05-19] MEDS: budesonide 0.5mg/2ml UD nebule IH SCH ×2 (08:12→19:43)
[2021-05-19] MEDS: enoxaparin 80mg/0.8ml syringe SUBCUT SCH ×2 (08:48→21:25)
--- NOTE | 2021-05-19 10:17 | NUR ---
0900- loki Estevez. 1000- Patient complaining about not being able to breath, medicated with ativan, and proned, patient sats increasing, 86-88%, patient resting comfortably.
--- NOTE | 2021-05-19 12:10 | NUR ---
1200-Per Dr Frias via Fernando Simpson, katrin off of isolation
[2021-05-19] MEDS: sodium chloride 0.45% 1,000 ML IV SCH ×2 (13:35→17:29)
[2021-05-19] MEDS: LORazepam 2 mg/ml vial IV PRN ×2 (14:20→17:55)
--- NOTE | 2021-05-19 14:47 | NUR ---
1400 restless, desating, called md increased ativan to q 4. repositioned to prone with right side up, sats 92%.
--- NOTE | 2021-05-19 18:15 | NUR ---
Patient in room CICU 2013. I have received report from ELAINA Lowry and had the opportunity to ask questions and assume patient care. Patient currently in prone position with left side up supported with pillows. Oxygen saturation 88% on 100% FiO2 on BiPAP and 15L high flow nasal cannula.
[2021-05-20] VITALS (25 sets, daily range): BP systolic 79–159; BP diastolic 42–104
[2021-05-20] MEDS: methylPREDNISolone sod succ 125mg/2ml vial IV SCH ×3 (00:04→16:17)
[2021-05-20] MEDS: dexmedetomidine/D5W 100mL 100 ML IV SCH ×4 (01:08→13:58)
[2021-05-20 03:13] LABS: BASOPHILS % (AUTO) 0.1 % (0-1); EOSINOPHILS % (AUTO) 0 % (0-6); HEMATOCRIT 47.8 % (42.0-52.0); HEMOGLOBIN 16.7 g/dl (14.0-17.9); LYMPHOCYTES # (AUTO) 0.2 X10'3 (1.1-4.8); LYMPHOCYTES % (AUTO) 1.3 % (21-51); MEAN CORPUSCULAR HGB CONC 34.9 g/dL (33.0-36.5); MEAN CORPUSCULAR VOLUME 97.3 FL (78-98); MEAN PLATELET VOLUME 7.6 FL (7.4-10.4); MONOCYTES # (AUTO) 0.4 X10'3 (0-0.9); MONOCYTES % (AUTO) 2.2 % (2-12); NEUTROPHILS # (AUTO) 16.9 X10'3 (1.8-7.7); NEUTROPHILS % (AUTO) 96.4 % (42-75); PLATELET COUNT 164 X10'3 (140-440); RED BLOOD COUNT 4.91 X10'6 (4.70-6.10); RED CELL DISTRIBUTION WIDTH 12.9 % (11.5-14.5); WHITE BLOOD COUNT 17.5 X10'3 (4.5-11.0)
[2021-05-20 03:30] LABS: D-DIMER 5.19 MG/L FEU (0-0.50); PARTIAL THROMBOPLASTIN TIME 33 SECONDS (22-32)
[2021-05-20 03:32] LABS: ALANINE AMINOTRANSFERASE 72 U/L (12-78); ALBUMIN 1.5 G/DL (3.4-5.0); ALBUMIN/GLOBULIN RATIO 0.4 (1.1-1.5); ALKALINE PHOSPHATASE 108 IU/L (46-116); ANION GAP 9 (8-16); ASPARTATE AMINO TRANSFERASE 35 U/L (10-37); BILIRUBIN,TOTAL 0.9 MG/DL (0.1-1.0); BLOOD UREA NITROGEN 41 MG/DL (7-18); BUN/CREATININE RATIO 53.9 (5.4-32.0); C-REACTIVE PROTEIN 5.03 MG/DL (0.0-0.5); CHLORIDE 107 MMOL/L (99-107); CREATININE 0.76 MG/DL (0.60-1.10); GLUCOSE 173 MG/DL (70-104); MAGNESIUM 2.7 MG/DL (1.5-2.4); PHOSPHORUS 3.9 MG/DL (2.3-4.5); POTASSIUM 4.7 MMOL/L (3.5-5.1); SODIUM 140 MMOL/L (135-145); TOTAL CARBON DIOXIDE 24.3 MMOL/L (24-32); eGFR > 90 ML/MIN
--- NOTE | 2021-05-20 05:44 | NUR ---
Patient unable to tolerate repositioning during shift. Patient would desaturate to the 70's and take a long time to recover. Patient remained in the prone position with pillows placed under his left side. Passive range of motion provided to extremities. Patient saturation in the in mid 90's and respiratory rate 17-20 throughout shift. Patient appeared to be sleeping and is sedated with Precedex. Patient did not require additional sedation with Ativan. Precedex titrated secondary to bradycardic heart rate.
--- NOTE | 2021-05-20 06:00 | NUR ---
Patient woke up from sleep. Called out for help. Patient repositioned to his left side. Patient with decreased oxygen saturation and increased respiratory rate. Ativan administered per order
[2021-05-20] MEDS: LORazepam 2 mg/ml vial IV PRN ×4 (06:05→17:26)
--- NOTE | 2021-05-20 06:38 | NUR ---
Problems reprioritized. Patient report given, questions answered & plan of care reviewed with ELAINA Summers.
[2021-05-20] MEDS: K and/or MAG REPLACEMENT MC SCH ×2 (08:00→19:34)
[2021-05-20] MEDS: docusate sod 100mg capsule PO SCH ×2 (08:00→20:00)
[2021-05-20] MEDS: lisinopril 5mg tablet PO SCH (08:00)
[2021-05-20] MEDS: lactose-reduced food (Ensure Enlive) - 237ml bottle PO SCH ×3 (08:00→18:00)
[2021-05-20] MEDS: lactobacillus rhamnosus 10,000 MMU CELLS/CAPSULE PO SCH ×2 (08:00→20:00)
[2021-05-20] MEDS: budesonide 0.5mg/2ml UD nebule IH SCH ×2 (08:10→23:39)
[2021-05-20] MEDS: enoxaparin 80mg/0.8ml syringe SUBCUT SCH ×2 (08:55→21:27)
[2021-05-20 09:16] LABS: ABG BASE EXCESS -4.1 mmol/L (-2.0-2.0); ABG HCO3 17.3 mmol/L (22.0-26.0); ABG PCO2 (T) 22.2 mmHg (35.0-48.0); ABG PO2 (T) 42.7 mmHg (75.0-100.0); ALLEN'S TEST POSITIVE; FCOHb 0.3 % (0.0-3.9); FMetHb 0.3 % (0.0-1.5); FO2Hb 85.5 % (94-97); PATIENT TEMPERATURE 34.2; RESPIRATORY RATE 16 b/min; TIDAL VOLUME 1308 mL; TOTAL HEMOGLOBIN 18.5 G/dl (14.0-18.0)
[2021-05-20] MEDS: NORepinephrine 8mg/ 250ml NS 250 ML IV SCH ×2 (10:01→22:55)
--- NOTE | 2021-05-20 12:46 | NUR ---
0800 Zestril 05/20/2021 Unable to administer due to patient being unstable when bipap is off
--- NOTE | 2021-05-20 17:00 | NUR ---
Informed charge nurse that patient was not maintaing sat above 77% heart rate in the 140's and RR 40-42 per minute. She stated that Dr. Young was with her and he will be over and to get things set up for intubation
[2021-05-20 17:09] LABS: ABG BASE EXCESS -2.2 mmol/L (-2.0-2.0); ABG HCO3 21.1 mmol/L (22.0-26.0); ABG OXYGEN SATURATION 82.8 % (94-97); ABG PCO2 (T) 31.9 mmHg (35.0-48.0); ALLEN'S TEST POSITIVE; FCOHb 0.3 % (0.0-3.9); FMetHb 0.3 % (0.0-1.5); FO2Hb 82.3 % (94-97); RESPIRATORY RATE 16 b/min; TIDAL VOLUME 1632 mL; TOTAL HEMOGLOBIN 20.4 G/dl (14.0-18.0)
--- NOTE | 2021-05-20 18:05 | NUR ---
Patient in room CICU 2013. I have received report from ELAINA Alcantara and had the opportunity to ask questions and assume patient care.
[2021-05-20] MEDS ORDERED: amiodarone 150mg/dext, iso-os 100 ML IV ONE ×2 (18:35→18:38)
--- NOTE | 2021-05-20 18:37 | NUR ---
HR sustained above 160 A-Fib/ A-flutter. Dr. Young at bedside orders for Amiodarone bolus IV and drip to follow per protocol.
[2021-05-20] MEDS ORDERED: amiodarone/D5 360MG/200ML BAG 200 ML IV ONE (18:38)
[2021-05-20] MEDS: amiodarone/D5 360MG/200ML BAG 200 ML IV SCH (18:53)
--- NOTE | 2021-05-20 18:56 | NUR ---
Problems reprioritized. Patient report given, questions answered & plan of care reviewed with Farzaneh DELANEY.
--- NOTE | 2021-05-20 19:00 | NUR ---
Several attempts made to place OG/ NG tube. Unable to advance tube. Patient HOB at 30 degrees.
[2021-05-20] MEDS: midazolam 100mg in NS 100ml 100 ML IV PRN ×2 (19:02→23:11)
[2021-05-20 19:08] LABS: ABG BASE EXCESS -6.7 mmol/L (-2.0-2.0); ABG HCO3 23.7 mmol/L (22.0-26.0); ABG OXYGEN SATURATION 91.9 % (94-97); ABG PCO2 (T) 64.2 mmHg (35.0-48.0); ABG PO2 (T) 78.5 mmHg (75.0-100.0); ALLEN'S TEST POSITIVE; FCOHb 0.3 % (0.0-3.9); FMetHb 0.8 % (0.0-1.5); FO2Hb 90.9 % (94-97); PATIENT TEMPERATURE 36.6; PEEP 12 cm H2O; RESPIRATORY RATE 20 b/min; TIDAL VOLUME 500 mL; TOTAL HEMOGLOBIN 21.3 G/dl (14.0-18.0)
[2021-05-20] MEDS: FENTANYL-0.9 % NACL/PF 100 ML IV PRN (19:17)
--- NOTE | 2021-05-20 19:57 | NUR ---
Phone call to Dr. Munroe, Patient heart rate sustaining above 150. Patient received Amiodarone bolus followed by 1mg/min. Drip. ORDER FOR 5 mg Lopressor IV now.
[2021-05-20] MEDS ORDERED: metoprolol tartrate 1mg/ml inj IV ONE (20:00)
--- NOTE | 2021-05-20 20:10 | NUR ---
Patient cardiac rhythm slowed down to atrial flutter with a rate in the 90's. Patient BP continuing to hold with a MAP greater than 60. Patient diaphoretic blood sugar assessed to be 193 mg/dL. Core/ esophageal thermometer placed temp 37.8.
--- NOTE | 2021-05-20 23:00 | NUR ---
Decreased urine output noted, CVP 4, 250ml Fluid challenge administered. Patient started on Levo secondary to MAP less than 60. Patient heart rate back to the 130's. tanning wheel filler at bedside.
[2021-05-21] VITALS (24 sets, daily range): BP systolic 94–137; BP diastolic 45–64
--- NOTE | 2021-05-21 | NUR ---
Blood cultures x1 drawn from central line. Blood work sent to lab for STAT Lactic Acid, CBC, CMP
[2021-05-21] MEDS: amiodarone/D5 360MG/200ML BAG 200 ML IV SCH ×2 (00:40→11:49)
[2021-05-21] MEDS: methylPREDNISolone sod succ 125mg/2ml vial IV SCH ×3 (00:40→16:46)
[2021-05-21] MEDS: cefepime 2g/NS 100ml ADVANTAGE 100 ML IV SCH ×3 (00:44→16:46)
[2021-05-21 01:16] LABS: BASOPHILS % (AUTO) 0.1 % (0-1); EOSINOPHILS % (AUTO) 0 % (0-6); HEMATOCRIT 53.5 % (42.0-52.0); LYMPHOCYTES # (AUTO) 0.2 X10'3 (1.1-4.8); LYMPHOCYTES % (AUTO) 0.6 % (21-51); MEAN CORPUSCULAR HEMOGLOBIN 33.5 PG (27.0-31.0); MEAN CORPUSCULAR HGB CONC 34.1 g/dL (33.0-36.5); MEAN CORPUSCULAR VOLUME 98.3 FL (78-98); MONOCYTES % (AUTO) 2.9 % (2-12); NEUTROPHILS # (AUTO) 34.3 X10'3 (1.8-7.7); NEUTROPHILS % (AUTO) 96.4 % (42-75); PLATELET COUNT 221 X10'3 (140-440); RED BLOOD COUNT 5.44 X10'6 (4.70-6.10); RED CELL DISTRIBUTION WIDTH 13.4 % (11.5-14.5)
[2021-05-21 01:24] LABS: ALANINE AMINOTRANSFERASE 116 U/L (12-78); ALBUMIN 1.7 G/DL (3.4-5.0); ALBUMIN/GLOBULIN RATIO 0.4 (1.1-1.5); ALKALINE PHOSPHATASE 138 IU/L (46-116); ANION GAP 11 (8-16); ASPARTATE AMINO TRANSFERASE 67 U/L (10-37); BILIRUBIN,TOTAL 0.7 MG/DL (0.1-1.0); BLOOD UREA NITROGEN 54 MG/DL (7-18); C-REACTIVE PROTEIN 8.16 MG/DL (0.0-0.5); CALCIUM 7.9 MG/DL (8.5-10.1); CHLORIDE 106 MMOL/L (99-107); CREATININE 1.69 MG/DL (0.60-1.10); GLUCOSE 181 MG/DL (70-104); MAGNESIUM 3.1 MG/DL (1.5-2.4); PHOSPHORUS 8.4 MG/DL (2.3-4.5); SODIUM 141 MMOL/L (135-145); TOTAL CARBON DIOXIDE 24.5 MMOL/L (24-32); TOTAL PROTEIN 5.6 G/DL (6.4-8.2); eGFR 39 ML/MIN
[2021-05-21 01:25] LABS: HEMOGLOBIN 18.2 g/dl (14.0-17.9); WHITE BLOOD COUNT 35.6 X10'3 (4.5-11.0)
[2021-05-21 01:27] LABS: PARTIAL THROMBOPLASTIN TIME 35 SECONDS (22-32)
[2021-05-21 01:34] LABS: D-DIMER > 35.20 MG/L FEU (0-0.50)
--- NOTE | 2021-05-21 01:37 | NUR ---
Dr. Munroe called with Critical lab values: Lactic acid 4.0, WBC 35.6, Hgb 18.2, K 6.0 reviewed current lab values with , made aware of decreased Urine output. Advised MD of 250 mL bolus administered. ORDER for additional 750 mL bolus of Lactated Ringers then no more fluid after that. discontinue maintenance fluids.
[2021-05-21] MEDS ORDERED: ringers solution, lactated 500ml IV solution IV ONE (01:50)
[2021-05-21] MEDS: FENTANYL-0.9 % NACL/PF 100 ML IV PRN ×2 (02:06→16:50)
[2021-05-21 02:50] LABS: ABG HCO3 20.8 mmol/L (22.0-26.0); ABG OXYGEN SATURATION 92.2 % (94-97); ABG PCO2 (T) 67.7 mmHg (35.0-48.0); ABG PO2 (T) 85.7 mmHg (75.0-100.0); ALLEN'S TEST POSITIVE; FCOHb 0.2 % (0.0-3.9); FMetHb 0.7 % (0.0-1.5); FO2Hb 91.4 % (94-97); PEEP 12 cm H2O; RESPIRATORY RATE 24 b/min; TIDAL VOLUME 500 mL; TOTAL HEMOGLOBIN 19.5 G/dl (14.0-18.0)
[2021-05-21 03:29] LABS: PLATELET ESTIMATE NORMAL; TOTAL CELLS COUNTED 100
--- NOTE | 2021-05-21 04:22 | NUR ---
Dr. Regalado called with repeat Lactic Acid 3.7. Critical values on ABG. pH 7.11, pCO2 67.7, pO2 85.7. current vent settings reviewed. Order to increase respiratory rate to 30.
[2021-05-21] MEDS: dexmedetomidine/D5W 100mL 100 ML IV SCH ×3 (04:31→20:04)
[2021-05-21] MEDS: NORepinephrine 8mg/ 250ml NS 250 ML IV SCH ×2 (05:00→11:53)
--- NOTE | 2021-05-21 06:23 | NUR ---
Problems reprioritized. Patient report given, questions answered & plan of care reviewed with ELAINA Noguera.
[2021-05-21] MEDS: midazolam 100mg in NS 100ml 100 ML IV PRN ×2 (07:41→16:51)
[2021-05-21] MEDS: lisinopril 5mg tablet PO SCH (07:42)
[2021-05-21] MEDS: enoxaparin 80mg/0.8ml syringe SUBCUT SCH ×2 (07:42→21:53)
[2021-05-21] MEDS: docusate sod 100mg capsule PO SCH ×2 (07:42→20:00)
[2021-05-21] MEDS: lactobacillus rhamnosus 10,000 MMU CELLS/CAPSULE PO SCH ×2 (07:43→20:00)
[2021-05-21] MEDS: lactose-reduced food (Ensure Enlive) - 237ml bottle PO SCH ×3 (07:43→18:00)
[2021-05-21] MEDS: K and/or MAG REPLACEMENT MC SCH ×2 (08:00→20:00)
[2021-05-21] MEDS: budesonide 0.5mg/2ml UD nebule IH SCH ×2 (08:07→19:56)
[2021-05-21] MEDS ORDERED: dextrose 5%-normal saline 1,000 ML IV SCH (09:05)
--- NOTE | 2021-05-21 11:40 | NUR ---
TF consult: Pt intubated and sedated. Prior to intubation pt eating well though did decline to 0% PO intake of meals on 05/16 with 0% PO intake of ONS on 05/18. TF consult received though attempts at placing an OG/NG tube were unsuccessful per clinical documentation improvement specialist. Will place TF recommendations below for once enteral access is achieved. Noted pt receiving D5/NS at 100 mL/hr providing roughly 408 kcal/day. Electrolytes elevated today, per MD pending repeat labs for accuracy. Pt with routine bowel care available though held d/t diarrhea, however pt with no documented BM since 05/19. Will continue to follow closely and make recommendations as appropriate. Recommendations: 1) Once enteral access is achieved, continuous Vital AF with goal rate of 85 mL/hr. To begin at 25 mL/hr and advance by 20 mL Q8H as tolerated to goal rate. Once at goal to provide 2040 mL total volume/day, 2448 kcal, 153 g protein, and 1654 mL water 2) Once TF, additional 130 mL water flush Q4H; monitor serum Na 3) Once TF, prealbumin q Wednesday/; daily scaled weights 4) Routine bowel care 5) Diet advancement to regular as medically indicated following extubation Addendum: 05/21/21 at [address] Amended: Links added.
[2021-05-21 13:20] LABS: ABG BASE EXCESS -9.3 mmol/L (-2.0-2.0); ABG HCO3 20.2 mmol/L (22.0-26.0); ABG OXYGEN SATURATION 93.2 % (94-97); ABG PCO2 (T) 59.3 mmHg (35.0-48.0); ABG PO2 (T) 82.6 mmHg (75.0-100.0); ALLEN'S TEST POSITIVE; FCOHb 0.2 % (0.0-3.9); FMetHb 0.7 % (0.0-1.5); FO2Hb 92.4 % (94-97); PEEP 12 cm H2O; RESPIRATORY RATE 30 b/min; TIDAL VOLUME 602 mL
[2021-05-21] MEDS: sodium bicarbonate (8.4%) inj. 150 MEQ in dextrose 5%-water 1,000 ML IV SCH (16:51)
--- NOTE | 2021-05-21 18:45 | NUR ---
Problems reprioritized. Patient report given, questions answered & plan of care reviewed.
[2021-05-21] MEDS ORDERED: VANCOmycin 1250MG/NS 250ml Bag 250 ML IV ONE (23:10)
[2021-05-22] VITALS (19 sets, daily range): BP systolic 58–183; BP diastolic 29–85
[2021-05-22] MEDS: cefepime 2g/NS 100ml ADVANTAGE 100 ML IV SCH ×2 (00:17→09:09)
[2021-05-22] MEDS: methylPREDNISolone sod succ 125mg/2ml vial IV SCH ×3 (00:17→16:00)
[2021-05-22] MEDS: amiodarone/D5 360MG/200ML BAG 200 ML IV SCH ×2 (00:55→12:26)
[2021-05-22] MEDS: sodium bicarbonate (8.4%) inj. 150 MEQ in dextrose 5%-water 1,000 ML IV SCH ×2 (01:00→11:04)
[2021-05-22] MEDS: midazolam 100mg in NS 100ml 100 ML IV PRN ×2 (01:52→12:22)
[2021-05-22 02:34] LABS: ABG BASE EXCESS -7.8 mmol/L (-2.0-2.0); ABG HCO3 21.5 mmol/L (22.0-26.0); ABG OXYGEN SATURATION 94.6 % (94-97); ABG PCO2 (T) 60.9 mmHg (35.0-48.0); ABG PO2 (T) 84.3 mmHg (75.0-100.0); ALLEN'S TEST POSITIVE; FCOHb 0.3 % (0.0-3.9); FMetHb 0.7 % (0.0-1.5); FO2Hb 93.7 % (94-97); RESPIRATORY RATE 30 b/min; TIDAL VOLUME 500 mL; TOTAL HEMOGLOBIN 17.4 G/dl (14.0-18.0)
[2021-05-22] MEDS: dexmedetomidine/D5W 100mL 100 ML IV SCH ×2 (03:52→12:23)
[2021-05-22 04:25] LABS: BASOPHILS # (AUTO) 0.1 X10'3 (0-0.2); BASOPHILS % (AUTO) 0.3 % (0-1); EOSINOPHILS % (AUTO) 0 % (0-6); HEMATOCRIT 48.3 % (42.0-52.0); HEMOGLOBIN 15.7 g/dl (14.0-17.9); LYMPHOCYTES # (AUTO) 0.2 X10'3 (1.1-4.8); LYMPHOCYTES % (AUTO) 0.8 % (21-51); MEAN CORPUSCULAR HEMOGLOBIN 32.9 PG (27.0-31.0); MEAN CORPUSCULAR HGB CONC 32.6 g/dL (33.0-36.5); MEAN PLATELET VOLUME 7.8 FL (7.4-10.4); MONOCYTES # (AUTO) 0.4 X10'3 (0-0.9); MONOCYTES % (AUTO) 1.3 % (2-12); NEUTROPHILS # (AUTO) 31.2 X10'3 (1.8-7.7); NEUTROPHILS % (AUTO) 97.6 % (42-75); PLATELET COUNT 148 X10'3 (140-440); RED BLOOD COUNT 4.78 X10'6 (4.70-6.10); RED CELL DISTRIBUTION WIDTH 13.7 % (11.5-14.5)
[2021-05-22 04:41] LABS: ALANINE AMINOTRANSFERASE 289 U/L (12-78); ALBUMIN 1.4 G/DL (3.4-5.0); ALBUMIN/GLOBULIN RATIO 0.4 (1.1-1.5); ALKALINE PHOSPHATASE 86 IU/L (46-116); ANION GAP 12 (8-16); ASPARTATE AMINO TRANSFERASE 114 U/L (10-37); BILIRUBIN,TOTAL 0.5 MG/DL (0.1-1.0); BLOOD UREA NITROGEN 99 MG/DL (7-18); BUN/CREATININE RATIO 28.9 (5.4-32.0); C-REACTIVE PROTEIN 5.67 MG/DL (0.0-0.5); CALCIUM 7.1 MG/DL (8.5-10.1); CHLORIDE 106 MMOL/L (99-107); CREATININE 3.43 MG/DL (0.60-1.10); GLUCOSE 200 MG/DL (70-104); PHOSPHORUS 7.5 MG/DL (2.3-4.5); SODIUM 141 MMOL/L (135-145); eGFR 17 ML/MIN
[2021-05-22 04:45] LABS: D-DIMER 13.39 MG/L FEU (0-0.50); PARTIAL THROMBOPLASTIN TIME 43 SECONDS (22-32)
[2021-05-22 04:46] LABS: POTASSIUM 6.3 MMOL/L (3.5-5.1)
[2021-05-22 04:55] LABS: PLATELET ESTIMATE NORMAL; TOTAL CELLS COUNTED 100
--- NOTE | 2021-05-22 06:40 | NUR ---
Patient in room CICU 2013. I have received report from Edwin DELANEY and had the opportunity to ask questions and assume patient care.
[2021-05-22] MEDS: budesonide 0.5mg/2ml UD nebule IH SCH (07:41)
[2021-05-22] MEDS: lisinopril 5mg tablet PO SCH (08:00)
[2021-05-22] MEDS: lactobacillus rhamnosus 10,000 MMU CELLS/CAPSULE PO SCH (08:00)
[2021-05-22] MEDS: lactose-reduced food (Ensure Enlive) - 237ml bottle PO SCH ×3 (08:00→18:00)
[2021-05-22] MEDS: K and/or MAG REPLACEMENT MC SCH (08:00)
[2021-05-22] MEDS: docusate sod 100mg capsule PO SCH (08:00)
[2021-05-22] MEDS ORDERED: furosemide 40mg/4ml inj IV ONE (09:40)
[2021-05-22] MEDS ORDERED: vasopressin inj. 40 UNIT in normal saline 50ml IV soln 38 ML IV SCH (10:50)
--- NOTE | 2021-05-22 10:51 | NUR ---
pt with low blood pressure, levo increased, called, vasopressin drip ordered and pharmacy called. Dr. Young calling family about patients condition.
[2021-05-22] MEDS: enoxaparin 80mg/0.8ml syringe SUBCUT SCH (11:00)
--- NOTE | 2021-05-22 12:04 | NUR ---
F/u 05/22: TC to RN who reports further attempts for enteral access for TF were unsuccessful. MD notified at critical care rounds. TF recommendations remain below for if access is achieved. MD declines PICC/central access for TPN at this time. Will continue to follow closely. Addendum: 05/22/21 at [address] Amended: Links added.
[2021-05-22] MEDS: NORepinephrine 8mg/ 250ml NS 250 ML IV SCH (12:22)
--- NOTE | 2021-05-22 13:48 | NUR ---
pts and daughters at bedside, pt remains critical, hypotensive, with increase fever
--- NOTE | 2021-05-22 16:05 | NUR ---
pts and daughter spoke with Dr. Young. Decision to make patient comfort care only. would like patient extubated. Md placing orders, RT notified
--- NOTE | 2021-05-22 16:30 | NUR ---
All drips off per hospital protocol except precedex. Per families wishes pt to be extubated
[2021-05-22] MEDS ORDERED: morphine 4 MG/ML inj SYRINge IV ONE (17:10)
[2021-05-22] MEDS ORDERED: morphine 4 MG/ML inj SYRINge ONE (17:11)
--- NOTE | 2021-05-22 17:30 | NUR ---
pt extubated by RT, 4 mg of morphine given. Time of 1737. Dr. Young and family notified. Organ donor network notified, reference number [id number]
[2021-05-22] MEDS ORDERED: vancomycin/NS 1 GM ADD-VANTAGE 250 ML IV SCH (23:00)
[2021-05-23] MEDS ORDERED: enoxaparin 80mg/0.8ml syringe SUBCUT SCH (08:00)
[2021-05-23] MEDS ORDERED: cefepime 2g/NS 100ml ADVANTAGE 100 ML IV SCH (08:00)
[2021-05-24] MEDS ORDERED: VANCOMYCIN LEVEL IV ONE (22:30)
== END 2021-05-22 19:41 | DRG 208 ==
LOC: ER 17:38 → ED HOLD 18:25 → ORTHO 4S 05-08 07:42 → CICU 2S 05-18 17:22
PROVIDERS: ADMIT Internal Medicine; ATTEND Internal Medicine
PROC: XW033E5 Introduction of Remdesivir Anti-infective into Peripheral Vein, Percutaneous Approach, New Technology Group 5 (ICD-10-PCS; 2021-05-07)
PROC: 5A0945A Assistance with Respiratory Ventilation, 24-96 Consecutive Hours, High Flow/Velocity Cannula (ICD-10-PCS; 2021-05-08)
PROC: B32T1ZZ Computerized Tomography (CT Scan) of Left Pulmonary Artery using Low Osmolar Contrast (ICD-10-PCS; 2021-05-11)
PROC: B3201ZZ Computerized Tomography (CT Scan) of Thoracic Aorta using Low Osmolar Contrast (ICD-10-PCS; 2021-05-11)
PROC: B32S1ZZ Computerized Tomography (CT Scan) of Right Pulmonary Artery using Low Osmolar Contrast (ICD-10-PCS; 2021-05-11)
PROC: 5A09357 Assistance with Respiratory Ventilation, Less than 24 Consecutive Hours, Continuous Positive Airway Pressure (ICD-10-PCS; 2021-05-12)
PROC: 5A09557 Assistance with Respiratory Ventilation, Greater than 96 Consecutive Hours, Continuous Positive Airway Pressure (ICD-10-PCS; 2021-05-13)
PROC: 02HV33Z Insertion of Infusion Device into Superior Vena Cava, Percutaneous Approach (ICD-10-PCS; 2021-05-18)
PROC: B548ZZA Ultrasonography of Superior Vena Cava, Guidance (ICD-10-PCS; 2021-05-18)
PROC: 5A1945Z Respiratory Ventilation, 24-96 Consecutive Hours (ICD-10-PCS; principal; 2021-05-20)
PROC: 0BH17EZ Insertion of Endotracheal Airway into Trachea, Via Natural or Artificial Opening (ICD-10-PCS; 2021-05-20)
DX: U07.1 COVID-19 (principal); J96.01 Acute respiratory failure with hypoxia; J12.82 Pneumonia due to coronavirus disease 2019; I26.99 Other pulmonary embolism without acute cor pulmonale; N17.9 Acute kidney failure, unspecified; R57.9 Shock, unspecified; E87.1 Hypo-osmolality and hyponatremia; J44.0 Chronic obstructive pulmonary disease with (acute) lower respiratory infection; I48.91 Unspecified atrial fibrillation; E66.01 Morbid (severe) obesity due to excess calories; I10 Essential (primary) hypertension; Z66 Do not resuscitate; Z68.30 Body mass index [BMI] 30.0-30.9, adult; Z79.899 Other long term (current) drug therapy; Z78.1 Physical restraint status
CPT/HCPCS: 36415; 36600; 71045; 71275; 80048; 80053; 80202; 82803; 82948; 83605; 83615; 83735; 84100; 84145; 85007; 85018; 85025; 85379; 85384; 85610; 85730; 86140; 87040; 87070; 87077; 87081; 87186; 93005; 94002; 94003; 94640; 94660; 94760; 94799; 97110; 97161; 97530; 99285; G0378; J0692; J1644; J1650; J1940; J2060; J2270; J2930; J3010; J3370; J3490; J7030; J7042; J7120; J7626; J8540; Q9967